=== PATIENT | male | born 1980 | race American Indian/Alaskan Native ===

== ENCOUNTER 2017-05-29 12:15 | Day surgery (SDC) | payer OTHER ==
[~2017-05-29 12:15] MED LIST: ANCEF/STERILE WATER 2 GM/20 ML IV NR
[2017-05-29] MEDS ORDERED: VERSED IV PRN (14:12)
[2017-05-29] MEDS ORDERED: DIPRIVAN 10 MG/ML IV ONE (14:36)
[2017-05-29] MEDS ORDERED: XYLOCAINE MPF 2% ONE (14:36)
[2017-05-29] MEDS ORDERED: ZOFRAN ONE (14:36)
[2017-05-29] MEDS ORDERED: SUBLIMAZE ONE ×2 (14:36)
[2017-05-29] MEDS ORDERED: NEO SYNEPHRINE/NS Syringe(OR USE) IV ONE (14:45)
[2017-05-29] MEDS ORDERED: OMNIPAQUE (300 MG) IR ONE (14:54)
[2017-05-29] MEDS ORDERED: NACL 0.9% 1000 ML 1,000 ML IV SCH (15:00)
--- NOTE | 2017-05-29 15:14 | Anesthesia Consultation ---
Anesthesia Consult and Med Hx Date of service: 05/29/17 - Airway Anesthetic Teeth Evaluation: Good ROM Head & Neck: Adequate Mental/Hyoid Distance: Adequate Mallampati Class: Class II Intubation Access Assessment: Good - Pulmonary Exam CTA: Yes - Cardiac Exam Cardiac Exam: No Murmur - Pre-Operative Health Status ASA Pre-Surgery Classification: ASA1, ASA2 Proposed Anesthetic Plan: General - Pulmonary Hx Smoking: Yes (STOPPED X 2 YRS) Hx Sleep Apnea: No (MORGAN PRE SCREEN LOW RISK) - Cardiovascular System Hx Hypertension: No - Other Systems Hx Cancer: No
--- NOTE | 2017-05-29 15:15 | Anesthesia Day of Surgery ---
Anesthesia Day of Surgery - Day of Surgery Patient Examined: Yes Patient H&P Reviewed: Yes Patient is NPO: Yes
[2017-05-29] MEDS ORDERED: LACTATED RINGERS 1,000 ML ONE (15:23)
--- NOTE | 2017-05-29 15:42 | Short Stay Summary ---
Short Stay Documentation Date of service: 05/29/17 - History H&P: obtained from office - Allergies and Medications Current Medications: Allergies No Known Allergies Allergy (Verified 05/28/17 14:07) Home Medications Medication Instructions Recorded Confirmed Last Taken Type Ciprofloxacin HCl [Cipro] 500 mg PO BID 05/28/17 05/28/17 05/28/17 History Tamsulosin [Flomax] 0.4 mg PO QDAY 05/28/17 05/28/17 05/28/17 History oxyCODONE /ACETAMINOPHEN [Percocet 1 tab PO Q6HR PRN 05/28/17 05/28/17 05/28/17 History 5/325] traMADol [Ultram] 50 mg PO Q6HR PRN 05/28/17 05/28/17 05/28/17 History Active Medications Cefazolin Sodium (Ancef/Sterile Water 2 Gm/20 Ml) 2 gm IV PREOP NR Stop: 05/29/17 23:59 Sodium Chloride (Nacl 0.9% 1000 Ml) 1,000 mls @ 75 mls/hr IV DIRECT EDGAR Last Admin: 05/29/17 14:30 Dose: 75 mls/hr Midazolam HCl (Versed) 2 mg IV PREOP PRN PRN Reason: Anxiety Stop: 05/29/17 23:59 Last Admin: 05/29/17 14:30 Dose: 2 mg - Brief post op/procedure progress note Date of procedure: 05/29/17 Pre-op diagnosis: rt 11 mm distal stone Post-op diagnosis: same Procedure: cysto, rpg, rt ureteroscopy, laser, basket stone, stent with short internal string Anesthesia: GETA Surgeon: SABAS WARD Estimated blood loss: minimal Pathology: list (stone with pt) Specimen disposition: to lab, other Condition: stable - Hospital course Hospital course: pt has cipro & dilaudid post op info on chart appt next week - Disposition Condition at discharge: Stable Disposition: DC-01 TO HOME OR SELFCARE Short Stay Discharge Plan Follow up with: MARIE MORROW MD [Primary Care Provider] - 7 Days
[2017-05-29] MEDS ORDERED: DILAUDID IV PRN (16:07)
--- NOTE | 2017-05-29 16:17 | Operative Report ---
PREOPERATIVE DIAGNOSIS: Right distal ureteral stone, 11 mm. POSTOPERATIVE DIAGNOSIS: Right distal ureteral stone, 11 mm. PROCEDURES: Cystoscopy, bilateral retrograde pyelograms, right rigid ureteroscopy, holmium laser lithotripsy, basket stone extraction, 6-Gu[place] 24 cm double-J stent with a short internal string. SURGEON: Guzman Lindsey MD ANESTHESIA: General. ESTIMATED BLOOD LOSS: Minimal. FLUIDS: Crystalloid. COMPLICATIONS: None. INDICATIONS: This patient is a 36-year-old gentleman seen in the office for right flank pain. CT of the abdomen and pelvis at [facility] revealed an 11 mm distal stone. The patient had significant pain. We discussed options. He agreed to proceed with surgical intervention. DESCRIPTION OF PROCEDURE: The patient was taken to the operative suite and placed in the supine position. After adequate general anesthesia, he was placed in the dorsal lithotomy position and prepped and draped in a sterile fashion. Pancystourethroscopy was performed with a 22 [place] Storz cystoscope, no urethral abnormalities. His prostate was nonobstructing. His bladder, no tumors or stones were noted. Both ureteral orifices were in normal position. Bilateral retrograde pyelograms were obtained with an 8 [place] Musselshell catheter and 8 mL of contrast. No filling defects or obstruction on the left. Right side, obvious 11 mm stone in the distal ureter 2 cm proximal to the ureteral orifice. Two 0.035 Glidewires were placed to the right collecting system under fluoroscopy. Rigid ureteroscopy was performed. The stone was localized. Using a 360 micron fiber, lithotripsy was performed starting at 4 alvarez going up to 8 alvarez. Adequate fragmentation could be appreciated. A 3-Gu[place] Georgette basket was used to extract the fragments. A 6 [place]alan 24 cm double-J stent with a short internal string was left indwelling. The patient had a fair amount of edema in the distal ureter. Rectal exam was benign. His bladder was drained. He was extubated and taken to recovery room. He will go home on Dilaudid and Cipro, which the patient already has and follow up in the office next week. JOB# [id number] JOSE L/GIBSON
[2017-05-29] MEDS ORDERED: NORCO 5/325 PO PRN (16:41)
[2017-05-29 17:43] VITALS: BP 133/89
--- NOTE | 2017-05-30 07:16 | Fluoroscopy Report ---
RETROGRADE PYELOGRAM: History: Right ureteral stone. Fluoroscopy was provided by radiology during retrograde pyelogram by Dr. Lindsey. 11 fluoroscopic images were captured. The left pyelogram is normal. A filling defect consistent with a stone is identified in the distal right ureter. Subsequent images demonstrate removal of the right ureteral stone and placement of a right ureteral stent which is in good position on the final image. Please correlate with the procedural report as needed. Impression: Right ureteral stent stone removal. Right ureteral stent placement.
== END 2017-05-29 17:52 | disposition home or self-care (01) ==
LOC: OR 12:15 → EDSEX 14:45 → OR 17:52
PROVIDERS: ATTEND Urology
DX: N20.1 Calculus of ureter (principal); Z87.891 Personal history of nicotine dependence
CPT/HCPCS: 52356; 74420; C1758; C1769; C2617; J0690; J1170; J2250; J2370; J2405; J2704; J3010; J7030; J7120; Q9967